=== PATIENT | female | born 1985 | race Two or more races ===

== ENCOUNTER 2017-01-12 16:57 | Emergency (ER) | payer MEDICAID ==
[2017-01-12] MEDS ORDERED: OXYCODONE/APAP 5/325 TAB PO ONE (17:53)
--- NOTE | 2017-01-12 17:53 | EDPHY ---
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 Neobladder - Social History Smoking Status: Never smoked HPI/ROS: CHIEF COMPLAINT: Accidental removal of suprapubic catheter, status post neobladder placement on Wednesday HISTORY OF PRESENT ILLNESS: Patient reports that she is here due to her suprapubic catheter coming out, for lower pain. 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 This is due to chemotherapy from leukemia treatment. Chemotherapy and 6 months ago. The paralysis has been present for a year. She had recurrent urinary tract infections and urine retention, thus the neobladder placement. This was done at [facility] in [place] on Wednesday. She does not know the name of the physician. She was transferred to [facility] yesterday. Since then she reports ongoing pain, spasm and occasional vomiting. She feels that her bladder is not functioning normally. She also says that the suprapubic catheter started to dislodge yesterday with being transferred from her power chair to her bed. This was further removed today when EMS was transferring her from her bed to the [facility]. She feels as though there is something abnormal with her bladder. No fever or chills. Occasional vomiting. No chest pain or shortness of breath. She has no sensation or motor function of the lower extremities. She has no sensation or movement of the right upper extremity. She does have near normal function of the left upper extremity. REVIEW OF SYSTEMS: Ten systems reviewed and are negative unless otherwise noted in the HPI PERTINENT MEDICAL HISTORY: Leukemia, status post chemotherapy SOCIAL HISTORY: Resides at [facility]. Nonsmoker. EXAMINATION General Appearance: Alert, no distress Head: normocephalic, atraumatic Eyes: Pupils equal and round, no conjunctival pallor or injection ENT, Mouth: Mucous membranes moist. Uvula midline. No erythema or edema. Neck: Normal inspection, supple, non-tender Respiratory: Lungs are clear to auscultation. No wheeze, rhonchi or crackles. Cardiovascular: Regular rate and rhythm. No murmur. Gastrointestinal: Abdomen is soft. No distention or rigidity. Suprapubic catheter site is mildly erythematous. No surrounding erythema or edema. No purulence. The catheter is just outside of the entrance Back: non-tender, no bony abnormalities Neurological: A&O, nonfocal baseline paralysis of the lower extremities are right upper extremity. Skin: Warm and dry, no rash Extremities: Nontender, no pedal edema Psychiatric: Mood and affect normal DIFFERENTIAL DIAGNOSES: Including but not limited to accident discontinuation of suprapubic catheter, dysfunction of suprapubic catheter, UTI, neurogenic bladder abdominal pain postoperative complication MDM: 5:28 P.M. Accidental removal of suprapubic catheter. She is postop day 3 from a neobladder placement. She is not in any the surgeon. She was sent here from [facility] without any documentation providing such information. I will contact them to discuss the recommendation. 5:35 p.m. I discussed the case with the patient's RN at [facility], Ruby Peralta. She informs that the patient is here at her own request due to her dissatisfaction with her pain medications there. She informs that the patient has to come to a hospital but not [facility]. She informs me that the suprapubic catheter was reportedly working until the EMS personnel were transferring her to their gurney. This is an discrepancy to the patient's stated history. She provided the names of the urologist that were taking care of the patient at [facility], this is Dr. Booker and Dr. Nice. 5:50 p.m. I have paged Dr. Booker to discuss the management of the suprapubic catheter displacement. 6:30 p.m. After reviewing the patient's information on [facility], I was able to find her discharge summary. She was discharged home yesterday. There was no surgical intervention. There was interventional radiology consultation for fluoroscopy for suprapubic catheter exchange. There was no neobladder placement. It was documented by the discharging physician Dr. Barrow. She recommended that should the suprapubic catheter failed or become problematic, the Carter catheter should be placed. The patient was then to be scheduled outpatient with Urology. She specifically documented that there was no urgency for the patient to return to the emergency department or hospital. I informed the patient of this and notified her that we will be placing a Carter catheter. She is comfortable with this plan. 6:51 p.m. I discussed the case with Dr. Lynn, the physician on-call for Dr. Booker. He is aware the patient was in the hospital recently. We discussed the accidental dislodgement of the suprapubic catheter. He recommends either suprapubic catheter or Carter catheter placement. the patient may be discharge with outpatient follow-up in urology. He had no further recommendations. We will adhere to these recommendations and place a Carter catheter. She will be discharged home stable condition with instructions to contact the urologist office in the morning. She is comfortable with this plan. SUPERVISION: Patient was evaluated in conjunction with the supervising physician. Please see their note for details. (Sukh Santana) Constitutional: Initial Vital Signs Temperature (C) 37 C 01/12/17 16:57 Heart Rate 74 01/12/17 16:57 Respiratory Rate 18 01/12/17 16:57 Blood Pressure 109/78 01/12/17 16:57 O2 Sat (%) 94 01/12/17 16:57 O2 Delivery Mode Room Air Allergies/Adverse Reactions: acetaminophen [From Percocet] Allergy (Verified 10/12/11 17:16) oxycodone HCl [From Percocet] Allergy (Verified 10/12/11 17:16) BEESTINGS Allergy (Uncoded 10/27/10 03:10) Home Medications: Medication Instructions Recorded Ondansetron Odt [Zofran Odt] 4 - 8 mg PO Q4PRN PRN #15 tab 09/16/11 Polyethylene Glycol 3350 [Miralax 17 gm PO Q4-6PRN PRN #1 pkt 09/16/11 17 gm (*)] NO HOME MEDICATIONS 09/26/11 Ondansetron Odt [Zofran Odt] 4 - 8 mg PO Q4PRN PRN #15 tab 11/19/11 Medical Decision Making Other Provider: PHYSICIAN DOCUMENTATION: The patient was evaluated and managed by the Physician Chief Deputy Court Clerk and myself. I have reviewed the chart and agree with the findings and plan of care as documented. In addition, I examined the patient myself at 1820. History confirmed as she feels the suprapubic catheter started to come out at 5:00 a.m. , and it fell out as she was being transferred to the ambulance [facility]. Physical findings as follows: Abdomen soft and nontender without peritoneal signs. There is a suprapubic catheter site with granulation tissue but no surrounding redness and no active bleeding. CORHIO reviewed including discharge summary 01/10. Suprapubic placed by IR without other surgery; plan for carter today per DC summary and back to living facility. I am the secondary supervising physician. (Triston Garcia) - Data Points Medications Given: Discontinued Medications Oxycodone/Acetaminophen (Percocet 5/325) 2 tab PO EDNOW ONE Stop: 01/12/17 17:54 Last Admin: 01/12/17 18:03 Dose: 2 tab Departure - Departure Disposition: Home, Routine, Self-Care Clinical Impression: Neurogenic bladder Condition: Good Instructions: Carter Catheter Placement and Care (ED) Additional Instructions: Contact urologist Dr. Booker tomorrow for outpatient follow-up. Follow up with primary care physician as well to discuss her ongoing pain management. Referrals: Patient,NotPresent [Unknown] - [facility]ructions [facility] - As per Instructions Marleen Vickers DO [Doctor of Osteopathy] - As per Instructions
[2017-01-12 19:37] LABS: BACTERIA TRACE /hpf (NONE SEEN); COLOR AMBER; LEUKOCYTE ESTERASE,URINE 2+ (NEGATIVE); MUCUS TRACE /lpf (NONE-1+); WBC,URINE 50-182 /hpf (0-3)
[2017-01-12] MEDS ORDERED: NITROFURANTOIN 100MG PREPACK#2 BTL TAKEHOME ONE (19:48)
[2017-01-12 20:05] VITALS: BP 116/78; PULSE 76; RESP 16; TEMP 98.1; O2SAT 96
== END 2017-01-12 20:05 | disposition home or self-care (01) ==
LOC: EDUNIT#
DX: N31.9 Neuromuscular dysfunction of bladder, unspecified (principal); Y82.8 Other medical devices associated with adverse incidents

== ENCOUNTER 2017-02-06 22:57 | Emergency (ER) | payer MEDICAID ==
--- NOTE | 2017-02-06 23:05 | CPEKG ---
Heart Rate: 72 RR Interval: 833 P-R Interval: 140 QRSD Interval: 94 QT Interval: 352 QTC Interval: 386 P Magnet: 50 QRS Magnet: 70 T Wave Magnet: 39 EKG Severity - NORMAL ECG - EKG Impression: SINUS RHYTHM Electronically Signed By: Sydnee Smith 07-Feb-2017 05:27:35
[2017-02-06] MEDS ORDERED: KETOROLAC 15 MG/1 ML SDV IVP/IM ONE (23:35)
[2017-02-06] MEDS ORDERED: METOCLOPRAMIDE 10 MG/2 ML VIAL IVP ONE (23:35)
[2017-02-06 23:36] LABS: % IMMATURE GRANULYOCYTES 0.2 % (0.0-1.1); ABSOLUTE IMMATURE GRANULOCYTES 0.01 10^3/uL (0.00-0.10); ADD DIFF? NO; ADD MORPH? NO; ADD SCAN? NO; ATYPICAL LYMPHOCYTE FLAG 0 (0-99); FRAGMENT RBC FLAG 0 (0-99); HEMATOCRIT 35.4 % (38.0-47.0); HEMOGLOBIN 11.6 g/dL (12.6-16.3); LEFT SHIFT FLG 0 (0-99); LIPEMIA HEMOLYSIS FLAG 80 (0-99); MEAN CELL HEMOGLOBIN 29.2 pg (27.9-34.1); MEAN CELL HEMOGLOBIN CONCENTR. 32.8 g/dL (32.4-36.7); MEAN CELL VOLUME 89.2 fL (81.5-99.8); MEAN PLATELET VOLUME 8.1 fL (8.7-11.7); PLATELET CLUMPS FLAG 30 (0-99); PLATELET COUNT 267 10^3/uL (150-400); RED BLOOD CELL COUNT 3.97 10^6/uL (4.18-5.33); RED CELL DISTRIBUTION WIDTH 14.3 % (11.5-15.2)
--- NOTE | 2017-02-06 23:41 | EDPHY ---
H & P Stated Complaint: CP, SOB,N/V ANKLE SWELLING Time Seen by Provider: 02/06/17 23:01 HPI/ROS: HPI The patient presents with chest pain which began at 9:00 p.m. tonight which started slowly and got progressively worse. It was in the left anterior chest and felt like a pressure sensation, it was intermittent and is now completely resolved. This was associated with shortness of breath and 2 episodes of vomiting. She received Zofran and aspirin 324 mg prior to arrival. It was noted by her [facility] that her pulse oximetry was 79% on room air. She is also complaining of 3 days of fatigue associated with a left-sided headache which has been constant. This radiates down her left neck. She took Percocet for this at about 5:00 p.m. tonight. She has had a similar headache but that was only when she was receiving intrathecal chemotherapy.. She also reports several months of fatigue with weight loss and lack of appetite. REVIEW OF SYSTEMS Constitutional: No fever, no chills. Eyes: No discharge. ENT: No sore throat. Cardiovascular: Positive for chest pain, no palpitations. Respiratory: No cough, no shortness of breath. Gastrointestinal: No abdominal pain, no vomiting. Genitourinary: No hematuria. Musculoskeletal: No back pain. Skin: No rashes. Neurological: Positive for headache. PMHx: Leukemia, paraplegia Soc Hx: Resides at [place] PHYSICAL General Appearance: Alert, no distress Eyes: Pupils equal and round no pallor or injection ENT, Mouth: Mucous membranes moist Respiratory: There are no retractions, lungs are clear to auscultation Cardiovascular: Regular rate and rhythm, no chest wall tenderness Gastrointestinal: Abdomen is soft and non-tender, no masses, bowel sounds normal Neurological: A&O, cranial nerves 2-12 intact, 5/5 strength of her upper and lower extremities, dizziness with rightward gaze, paraplegic Skin: Warm and dry, no rashes Musculoskeletal: Neck is supple non tender, there is atrophy and contractures of her lower extremities Extremities: symmetrical, trace ankle edema Psychiatric: Patient is oriented X 3, there is no agitation Source: Patient, EMS Exam Limitations: No limitations - Personal History Current Tetanus Diphtheria and Acellular Pertussis (TDAP): Yes Tetanus Vaccine Date: 06/2011 - Medical/Surgical History Hx Asthma: No Hx Chronic Respiratory Disease: No Hx Diabetes: No Hx Cardiac Disease: No Hx Renal Disease: No Hx Cirrhosis: No Hx Alcoholism: No Hx HIV/AIDS: No Hx Splenectomy or Spleen Trauma: No Other PMH: hx leukemia and 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 Neobladder -TRANSVERSE MYELITIS,DEPRESSION, - Social History Smoking Status: Current every day smoker Constitutional: Initial Vital Signs Temperature (C) 36.9 C 02/06/17 23:00 Heart Rate 81 02/06/17 23:00 Respiratory Rate 16 02/06/17 23:00 Blood Pressure 112/73 02/06/17 23:00 O2 Sat (%) 93 02/06/17 23:00 O2 Delivery Mode Room Air O2 (L/minute) 2 Allergies/Adverse Reactions: acetaminophen [From Percocet] Allergy (Verified 10/12/11 17:16) erythromycin base Allergy (Verified 02/06/17 23:06) oxycodone HCl [From Percocet] Allergy (Verified 10/12/11 17:16) BEESTINGS Allergy (Uncoded 10/27/10 03:10) Home Medications: Medication Instructions Recorded Ondansetron Odt [Zofran Odt] 4 - 8 mg PO Q4PRN PRN #15 tab 09/16/11 Polyethylene Glycol 3350 [Miralax 17 gm PO Q4-6PRN PRN #1 pkt 09/16/11 17 gm (*)] NO HOME MEDICATIONS 09/26/11 Ondansetron Odt [Zofran Odt] 4 - 8 mg PO Q4PRN PRN #15 tab 11/19/11 Nitrofurantoin Monohyd/M-Cryst 100 mg PO BID #14 capsule 01/12/17 [Macrobid 100 mg Capsule] BENADRYL 02/06/17 Belladonna-Opium 16.2-30 Supp 02/06/17 Cepacol Lozenge 02/06/17 GABAPENTIN 02/06/17 Oxybutynin 02/06/17 Percocet 7.5-325 mg Tablet 02/06/17 Potassium Chloride 02/06/17 Probiotic 02/06/17 Pyridium 02/06/17 Sennosides/Docusate Sodium 02/06/17 Venlafaxine 37.5MG (*) 02/06/17 traZODone 02/06/17 Medical Decision Making - Diagnostics EKG Interpretation: EKG: Complete interpretation has been separately recorded in the [employer] archive. Summary impression: Normal sinus rhythm Imaging Results: Imaging Impressions Chest X-Ray 02/06/17 23:07 Impression: Clear lungs. Negative portable chest. CT scan of head without contrast demonstrates no acute abnormalities, discussed with Dr. Naidu of Radiology. Imaging: I viewed and interpreted images myself Differential Diagnosis: This is a 31-year-old female with history of a LL, transverse myelitis, paraplegia, presenting by paramedics from her [facility] where she had an episode of chest pain earlier this evening associated with shortness of breath. The chest pain is now mostly resolved. Differential diagnosis includes ACS, PE, costochondritis, GERD, anxiety. In the emergency room, the patient's chest pain improved without any intervention. Her vital signs remained normal without any hypoxia. Chest x- ray and EKG were normal. Labs including a D-dimer were normal as well. While she was here, her headache became increasingly worse. It was left-sided, throbbing, felt like when she was receiving intrathecal chemotherapy. She has not had a headache since that time. Because of this, CT scan was obtained of her brain without contrast to evaluate for any mass or bleeding. This was normal and unchanged from a prior CT scan. I feel she is likely having a tension type headache versus migraine. I treated her here with IV fluids, Toradol, Phenergan, lidocaine, morphine with resolution of her symptoms of eventually. She was transported back to her [facility] by EMS. - Data Points Laboratory Results: Laboratory Results 02/06/17 23:30 02/06/17 23:30 02/06/17 02/06/17 02/06/17 23:30 23:30 23:30 WBC 5.19 10^3/uL 10^3/uL (3.80-9.50) RBC 3.97 10^6/uL L 10^6/uL (4.18-5.33) Hgb 11.6 g/dL L g/dL (12.6-16.3) Hct 35.4 % L % (38.0-47.0) MCV 89.2 fL fL (81.5-99.8) MCH 29.2 pg pg (27.9-34.1) MCHC 32.8 g/dL g/dL (32.4-36.7) RDW 14.3 % % (11.5-15.2) Plt Count 267 10^3/uL 10^3/uL (150-400) MPV 8.1 fL L fL (8.7-11.7) Neut % (Auto) 49.1 % % (39.3-74.2) Lymph % (Auto) 40.3 % % (15.0-45.0) [place] % (Auto) 6.7 % % (4.5-13.0) Eos % (Auto) 3.3 % % (0.6-7.6) Baso % (Auto) 0.4 % % (0.3-1.7) Nucleat RBC Rel Count 0.0 % % (0.0-0.2) Absolute Neuts (auto) 2.55 10^3/uL 10^3/uL (1.70-6.50) Absolute Lymphs (auto) 2.09 10^3/uL 10^3/uL (1.00-3.00) Absolute Monos (auto) 0.35 10^3/uL 10^3/uL (0.30-0.80) Absolute Eos (auto) 0.17 10^3/uL 10^3/uL (0.03-0.40) Absolute Basos (auto) 0.02 10^3/uL 10^3/uL (0.02-0.10) Absolute Nucleated RBC 0.00 10^3/uL 10^3/uL (0-0.01) Immature Gran % 0.2 % % (0.0-1.1) Immature Gran # 0.01 10^3/uL 10^3/uL (0.00-0.10) D-Dimer 0.43 ug/mLFEU ug/mLFEU (0.00-0.50) Sodium 139 mEq/L mEq/L (134-144) Potassium 4.1 mEq/L mEq/L (3.5-5.2) Chloride 106 mEq/L mEq/L (97-110) Carbon Dioxide 22 mEq/l mEq/l (22-31) Anion Gap 11 mEq/L mEq/L (8-16) BUN 6 mg/dL L mg/dL (7-23) Creatinine 0.5 mg/dL L mg/dL (0.6-1.0) Estimated GFR > 60 Glucose 86 mg/dL mg/dL (70-100) Calcium 9.4 mg/dL mg/dL (8.5-10.4) Troponin I < 0.012 ng/mL ng/mL (0-0.034) Medications Given: Discontinued Medications Diazepam (Valium) 5 mg PO EDNOW ONE Stop: 02/07/17 00:32 Last Admin: 02/07/17 00:52 Dose: 5 mg Lidocaine HCl 75 mg/ Sodium (Chloride) 107.5 mls @ 600 mls/hr IV EDNOW ONE Stop: 02/07/17 00:41 Last Admin: 02/07/17 00:52 Dose: 107.5 mls Ketorolac Tromethamine (Toradol) 15 mg IVP/IM EDNOW ONE Stop: 02/06/17 23:36 Last Admin: 02/06/17 23:51 Dose: 15 mg Metoclopramide HCl (Reglan Injection) 10 mg IVP EDNOW ONE Stop: 02/06/17 23:36 Last Admin: 02/06/17 23:52 Dose: Not Given Morphine Sulfate (Morphine) 4 mg IVP EDNOW ONE Stop: 02/07/17 01:21 Last Admin: 02/07/17 01:21 Dose: 4 mg Promethazine HCl (Phenergan) 12.5 mg IVP ONCE ONE Stop: 02/07/17 00:08 Last Admin: 02/07/17 00:13 Dose: 12.5 mg Departure - Departure Disposition: Home, Routine, Self-Care Clinical Impression: Chest pain Qualifiers: Chest pain type: unspecified Qualified Code(s): R07.9 - Chest pain, unspecified Headache Qualifiers: Headache type: unspecified Headache chronicity pattern: acute headache Intractability: not intractable Qualified Code(s): R51 - Headache Condition: Good Instructions: Chest Pain (ED) Additional Instructions: I recommend that you take ibuprofen 400 mg every 6 hours as needed for headache. Please make sure to drink plenty of fluids and get rest. You should return to the emergency room if your chest pain returns, if your feeling short of breath, if your headache is worse in any way. Referrals: KENNETH BRYANT [Primary Care Provider] - As per Instructions
[2017-02-07 00:02] LABS: ANION GAP 11 mEq/L (8-16); CALCIUM 9.4 mg/dL (8.5-10.4); CARBON DIOXIDE 22 mEq/l (22-31); CHLORIDE 106 mEq/L (97-110); CREATININE 0.5 mg/dL (0.6-1.0); GLOMERULAR FILTRATION RATE > 60; GLUCOSE 86 mg/dL (70-100); POTASSIUM 4.1 mEq/L (3.5-5.2); SODIUM 139 mEq/L (134-144)
[2017-02-07] MEDS ORDERED: PROMETHAZINE HCL 25 MG/ML INJ ONE (00:06)
[2017-02-07] MEDS ORDERED: PROMETHAZINE HCL 25 MG/ML INJ IVP ONE (00:07)
[2017-02-07 00:08] LABS: TROPONIN I < 0.012 ng/mL (0-0.034)
[2017-02-07] MEDS ORDERED: LIDOCAINE 1% 75 MG in NS 100 ML IV ONE (00:31)
[2017-02-07] MEDS ORDERED: DIAZEPAM 5 MG TAB PO ONE (00:31)
[2017-02-07 01:21] VITALS: O2SAT 96
[2017-02-07 02:44] VITALS: BP 105/67; PULSE 62; RESP 18; TEMP 98.2
== END 2017-02-07 03:14 | disposition home or self-care (01) ==
LOC: EDUNIT#
DX: R07.9 Chest pain, unspecified (principal); R51 Headache; F17.200 Nicotine dependence, unspecified, uncomplicated; Z85.6 Personal history of leukemia
CPT/HCPCS: 96374; J1885; J2550; J2765

== ENCOUNTER 2017-03-24 00:31 | Emergency (ER) | payer MEDICAID ==
[2017-03-24 01:01] VITALS: TEMP 98.8
[2017-03-24] MEDS ORDERED: HYDROmorphONE/DILAUDID 1 MG/ML SYR IM ONE (01:43)
--- NOTE | 2017-03-24 01:44 | EDPHY ---
H & P Stated Complaint: BIBA for dark urine, suspected UTI. pt resides @ [facility] Time Seen by Provider: 03/24/17 01:15 HPI/ROS: Chief Complaint: POSSIBLE UTI HPI: 31-year-old female with a history of transverse myelitis in her thoracic and cervical spine with chronic paralysis and a Blankenship catheter presenting for possible urinary tract infection. She is a resident of [facility]. She has the eats that she has been having increasing muscle spasms which is similar to prior UTIs. She has had a suprapubic catheter in the past but had it removed is currently has a Blankenship catheter. Staff changed her Blankenship catheter today but she states she has continued to have worsening spasms. She is taking her usual pain medications without relief. Denies fevers or chills. No nausea or vomiting. ROS: 10 point Review of Systems is negative except as noted in the HPI. PMH: Transverse myelitis, frequent UTIs Social History: No smoking, no alcohol, no recreational drug use Family History: non-contributory Physical Exam: Gen: Awake, Alert, No Distress HEENT: Nose: no rhinorrhea Eyes: PERRLA, EOMI Mouth: Moist mucosa Neck: Supple, no JVD Chest: nontender, lungs clear to auscultation Heart: S1, S2 normal, no murmur Abd: Soft, , no guarding Ext: no edema, non-tender Skin: no rash Neuro: CN II-XII intact - Personal History LMP (Females 10-55): Over 28 Days Ago Current Tetanus/Diphtheria Vaccine: Yes Current Tetanus Diphtheria and Acellular Pertussis (TDAP): Yes Tetanus Vaccine Date: 06/2011 - Medical/Surgical History Hx Asthma: No Hx Chronic Respiratory Disease: No Hx Diabetes: No Hx Cardiac Disease: No Hx Renal Disease: No Hx Cirrhosis: No Hx Alcoholism: No Hx HIV/AIDS: No Hx Splenectomy or Spleen Trauma: No Other PMH: hx leukemia and 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 Neurogenic bladder -TRANSVERSE MYELITIS, DEPRESSION, - Social History Smoking Status: Current every day smoker Constitutional: Initial Vital Signs Temperature (C) 37.1 C 03/24/17 00:56 Heart Rate 88 03/24/17 00:56 Respiratory Rate 16 03/24/17 00:56 Blood Pressure 101/75 03/24/17 00:56 O2 Sat (%) 92 03/24/17 00:56 O2 Delivery Mode Room Air Allergies/Adverse Reactions: fentanyl Allergy (Verified 03/24/17 00:52) morphine Allergy (Verified 03/24/17 00:52) BEESTINGS Allergy (Uncoded 03/24/17 00:51) Home Medications: Medication Instructions Recorded Ondansetron Odt [Zofran Odt] 4 - 8 mg PO Q4PRN PRN #15 tab 09/16/11 Polyethylene Glycol 3350 [Miralax 17 gm PO Q4-6PRN PRN #1 pkt 09/16/11 17 gm (*)] Ondansetron Odt [Zofran Odt] 4 - 8 mg PO Q4PRN PRN #15 tab 11/19/11 Nitrofurantoin Monohyd/M-Cryst 100 mg PO BID #14 capsule 01/12/17 [Macrobid 100 mg Capsule] BENADRYL 02/06/17 Belladonna-Opium 16.2-30 Supp 02/06/17 Cepacol Lozenge 02/06/17 GABAPENTIN 02/06/17 Oxybutynin 02/06/17 Percocet 7.5-325 mg Tablet 02/06/17 Potassium Chloride 02/06/17 Probiotic 02/06/17 Pyridium 02/06/17 Sennosides/Docusate Sodium 02/06/17 Venlafaxine 37.5MG (*) 02/06/17 traZODone 02/06/17 Medical Decision Making ED Course/Re-evaluation: 31-year-old female with a history of recurrent tract urinary tract infection but has a Blankenship catheter. Urinalysis done today at the retirement showed possible infection however given her chronic Blankenship catheter cannot rule out likely colonization. Patient has had symptoms for about a week now. I sent urine cultures. She has gotten intramuscular pain medications with relief of her spasms. Plan will be to discharge her back to [facility] where they can follow up on her urine culture results initiated antibiotics if necessary. - Data Points Medications Given: Discontinued Medications Hydromorphone HCl (Dilaudid) 2 mg IM EDNOW ONE Stop: 03/24/17 01:44 Last Admin: 03/24/17 01:52 Dose: 2 mg Departure - Departure Disposition: Home, Routine, Self-Care Clinical Impression: Urine abnormality Condition: Good Instructions: Catheter-associated Urinary Tract Infection (ED) Additional Instructions: Follow up with your urine culture results in 1-2 days to evaluate for possible urinary tract infection and for sensitivities to antibiotics. Return emergency department for fevers, worsening pain, nausea, vomiting, or any other concerns. Referrals: RIKY SOOD [Primary Care Provider] - As per Instructions
[2017-03-24 04:47] VITALS: BP 96/58; PULSE 76; RESP 18; O2SAT 94
== END 2017-03-24 04:45 | disposition home or self-care (01) ==
LOC: EDUNIT#
DX: R82.90 Unspecified abnormal findings in urine (principal); F17.200 Nicotine dependence, unspecified, uncomplicated
CPT/HCPCS: J1170

== ENCOUNTER → 2017-05-06 | Outpatient (CLI) | payer MEDICAID | LOC: FIMAGING 07:41 | PROVIDERS: ATTEND Ophthalmology Retina Specialist | DX: H20.012 Primary iridocyclitis, left eye (principal) ==